=== PATIENT | female | born 1945 | race Caucasian/White ===

== ENCOUNTER 2018-09-05 12:50 | Emergency (ER) | payer MEDICARE, OTHER ==
[~2018-09-05] VITALS: Wt 121.6 kg
[~2018-09-05 12:50] MED LIST: AMLO-145; TRAM50TA2
--- NOTE | 2018-09-05 14:35 | ERD ---
ER Documentation Chief Complaint Chief Complaint BILATERAL LEG PAIN AND SWELLING X 1 WEEK, FATIGUE YESTERDAY HPI This is a 73-year-old woman brought in by family member for dyspnea on exertion, bilateral lower extremity peripheral edema x1 week, patient denies history of CHF or lower extremity swelling. Patient denies chest pain but states with ambulation she has intermittent palpitations, no cough, no fevers or chills, no vomiting or diarrhea ROS All systems reviewed and are negative except as per history of present illness. Medications Home Meds Active Scripts Cephalexin* (Keflex*) 500 Mg Capsule, 500 MG PO QID for 7 Days, CAP Prov:LAURENCE MCGOVERN MD 09/05/18 Furosemide* (Lasix*) 20 Mg Tablet, 20 MG PO DAILY, #5 TAB Prov:LAURENCE MCGOVERN MD 09/05/18 Reported Medications Tramadol HCl (Tramadol HCl) 50 Mg Tablet 07/24/13 Amlodipine Besylate* (Amlodipine Besylate*) 5 Mg Tablet, DAILY 07/24/13 Allergies Allergies: Coded Allergies: No Known Allergies (Verified Allergy, Mild, 07/24/13) PMhx/Soc Hypertension, hypercholesterolemia, chronic low back pain status post epidural injections, obesity History of Surgery: Yes (gigi knee replacement t2mczad ago) Anesthesia Reaction: No Hx Neurological Disorder: No Hx Respiratory Disorders: No Hx Cardiac Disorders: Yes (HTN, hyperlipidemia) Hx Psychiatric Problems: No Hx Miscellaneous Medical Probl: Yes (lower back pain ) Hx Alcohol Use: No Hx Substance Use: No Hx Tobacco Use: No Smoking Status: Never smoker Physical Exam Vitals Vital Signs Date Temp Pulse Resp B/P (MAP) Pulse Ox O2 O2 Flow FiO2 Time Delivery Rate 09/05/18 98.6 69 17 104/55 98 Room Air 16:02 (71) 09/05/18 98.6 70 17 127/52 98 Room Air 14:15 (77) 09/05/18 98.6 72 20 144/67 97 13:11 (92) Physical Exam Const: Well-developed will nourished woman, no apparent distress, afebrile Resp: Bibasilar crackles, no wheezing or stridor Cardio: Regular rate and rhythm, no murmurs Abd: Soft, non tender, non distended. No guarding or rigidity Skin: No petechiae or rashes, no jaundice or icterus Back: No midline or flank tenderness Ext: No cyanosis, 2+ pitting edema in the lower extremities bilaterally, calves symmetrical Neur: Awake and alert x3, no focal deficits or facial asymmetry Psych: Normal Mood and Affect Result Diagram: 09/05/18 1435 09/05/18 1505 Results 24 hrs Laboratory Tests Test 09/05/18 14:35 09/05/18 14:36 09/05/18 15:05 White Blood Count 5.3 10^3/ul Red Blood Count 3.93 10^6/ul Hemoglobin 9.8 g/dl Hematocrit 31.3 % Mean Corpuscular Volume 79.6 fl Mean Corpuscular Hemoglobin 24.9 pg Mean Corpuscular 31.3 g/dl Hemoglobin Concent Red Cell Distribution Width 15.9 % Platelet Count 266 10^3/UL Mean Platelet Volume 10.3 fl Immature Granulocytes % 0.200 % Neutrophils % 52.9 % Lymphocytes % 28.6 % Monocytes % 11.5 % Eosinophils % 5.1 % Basophils % 1.7 % Nucleated Red Blood Cells % 0.0 /100WBC Immature Granulocytes # 0.010 10^3/ul Neutrophils # 2.8 10^3/ul Lymphocytes # 1.5 10^3/ul Monocytes # 0.6 10^3/ul Eosinophils # 0.3 10^3/ul Basophils # 0.1 10^3/ul Nucleated Red Blood Cells # 0.0 10^3/ul Urine Color YELLOW Urine Clarity CLOUDY Urine pH 7.0 Urine Specific [place] 1.016 Urine Ketones NEGATIVE mg/dL Urine Nitrite POSITIVE mg/dL Urine Bilirubin NEGATIVE mg/dL Urine Urobilinogen 2+ mg/dL Urine Leukocyte Esterase TRACE [place]/ul Urine Microscopic RBC 1 /HPF Urine Microscopic WBC 12 /HPF Urine Squamous Epithelial Cells FEW /HPF Urine Bacteria MANY /HPF Urine Mucus FEW /HPF Urine Hemoglobin NEGATIVE mg/dL Urine Glucose NEGATIVE mg/dL Urine Total Protein NEGATIVE mg/dl Sodium Level 143 mmol/L Potassium Level 4.2 mmol/L Chloride Level 109 mmol/L Carbon Dioxide Level 26 mmol/L Anion Gap 8 Blood Urea Nitrogen 13 mg/dl Creatinine 0.66 mg/dl Est Glomerular Filtrat mL/min Rate mL/min Glucose Level 91 mg/dl Calcium Level 9.2 mg/dl Total Bilirubin 0.8 mg/dl Direct Bilirubin 0.00 mg/dl Indirect Bilirubin 0.8 mg/dl Aspartate Amino 59 IU/L Transf (AST/SGOT) Alanine 39 IU/L Aminotransferase (ALT/SGPT) Alkaline Phosphatase 220 IU/L Troponin I < 0.012 ng/ml B-Type Natriuretic Peptide 244 PG/ML Total Protein 7.7 g/dl Albumin 3.6 g/dl Globulin 4.10 g/dl Albumin/Globulin Ratio 0.87 Lipase 140 U/L Current Medications Medications Dose Sig/Franco Start Time Status Last (Trade) Ordered Route PRN Stop Time Admin Dose Reason Admin Furosemide 20 mg ONCE ONCE 09/05/18 DC 09/05/18 (Lasix) IV 15:00 14:54 09/05/18 15:01 Ceftriaxone 50 ml @ ONCE ONCE 09/05/18 DC 09/05/18 Sodium 100 mls/hr IVPB 16:00 16:02 09/05/18 16:29 Procedures/MDM IV line was established patient was placed on registered nurse cardiac telemetry rhythm strip revealed a sinus rhythm at about 70 bpm with upright P and T waves. Patient was afebrile EKG performed, read by me: 70 bpm, normal sinus rhythm, normal axis, no acute ST segment changes, narrow QRS complex, with good R-wave progression in precordial leads. I ordered furosemide 20 mg IV x1 UA was positive for infection I treated her here with ceftriaxone 1 g IV. One AP view of the chest performed, read by me reveals no acute infiltrates, normal mediastinum, sharp costophrenic and cardiac borders, no air under the diaphragm. Otherwise unremarkable chest x-ray. CBC revealed mild anemia, electro lites are normal, liver function test normal, troponin negative, BNP low. Differential diagnoses considered, included but not limited to acute coronary syndrome, pulmonary embolism, aortic dissection, abdominal aortic aneurysm, sepsis, stroke, meningitis, encephalitis, pneumonia, appendicitis, cholecyst itis, bowel obstruction, pyelonephritis, nephrolithiasis, cystitis, as well as metabolic, hematologic, and electrolyte abnormalities. As well as abscess, cellulitis, fractures, and dislocations. Patient feels much better at this time, and vital signs are normal, symptoms have improved. I did give strict instructions to return to the ED if symptoms continue or worsen, patient will otherwise follow-up with primary care physician. Patient understood instructions and agreed to plan. Disclaimer: Inadvertent spelling and grammatical errors are likely due to EHR/dictation software use and do not reflect on the overall quality of patient care. Also, please note that the electronic time recorded on this note does not necessarily reflect the actual time of the patient encounter. Departure Diagnosis: Primary Impression: Peripheral edema Additional Impression: Acute UTI Condition: Good LAURENCE MCGOVERN MD September 05, 2018 14:35
[2018-09-05] MEDS ORDERED: FUROSEMIDE 20 MG INJ IV ONE (15:00)
[2018-09-05] MEDS ORDERED: CEFTRIAXONE 1 GM/50 ML (PMX) 50 ML IVPB ONE (16:00)
[2018-09-05 16:02] VITALS: BP 104/55; PULSE 69; RESP 17
[2018-09-05] MEDS ORDERED: FURO-110 PO (16:19)
[2018-09-05] MEDS ORDERED: CEPH-443 PO (16:19)
== END 2018-09-05 16:35 | disposition home or self-care (01) ==
LOC: E/R 12:50
DX: N39.0 Urinary tract infection, site not specified (principal); R60.9 Edema, unspecified; I10 Essential (primary) hypertension; E66.9 Obesity, unspecified
CPT/HCPCS: 36415; 71045; 80053; 81001; 83690; 83880; 84484; 85025; 96374; 96375; 99284; J0696; J1940